=== PATIENT | male | born 1965 | race Caucasian/White ===

== ENCOUNTER 2016-11-29 11:54 | Emergency (ER) | payer OTHER ==
--- NOTE | ~2016-11-29 | CR98 ---
[facility] A Service of [facility] & [facility] RADIOLOGY TEXT RESULTS PATIENT: SHERINE CONTRERAS LOCATION: [facility] : 61 UNIT #: [id number] AGE: [address]: Leonard Dumont MD SEX: M ORDER DR: [id number] [facility] [address] [place], [place] [address] [id number] E MR#: [id number] Acc #: [id number] NAME: SHERINE CONTRERAS : 1965 SEX: M STUDY DATE/TIME: 11/29/2016 13:32 UNIT: [facility] ROOM: STUDY DESCRIPTION: CR Eye FB Shane Attending Physician: Leonard Dumont M.D. Ordering Physician: Brayden Vazquez D.O. Primary Care Physician: No Primary Care Physician MEDICAL IMAGING REPORT This report is preliminary unless electronic signature is present EXAM Plain film, orbital series, 11/29/2016. HISTORY Clinical concern for retained opaque foreign body. Former worker with metal. MRI planned for later today. Clearance for MRI. FINDINGS 3 views of the orbits performed. No comparisons. No retained opaque foreign body identified in the field of view. Dental hardware artifact present. The patient has mild degenerative change in the visualized cervical spine. IMPRESSION No retained opaque foreign body identified in the field of view. Dictated by... Bebeto Dye M.D. THIS IS AN ELECTRONICALLY VERIFIED REPORT Bebeto Dye M.D. at 11/29/2016 4:57 PM Dilip TD: 11/29/2016 16:37 JOB #: [id number] MEDICAL IMAGING REPORT COPY
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
[2016-11-29 14:03] LABS: BLOOD UREA NITROGEN 12 mg/dL (9-23); BUN/CREATININE RATIO 17.14; CALCIUM SERUM 9.3 mg/dL (8.4-10.2); CARBON DIOXIDE 27 mmol/L (22-31); CHLORIDE 104 mmol/L (100-111); CREATININE SERUM 0.7 mg/dL (0.6-1.4); GLOM FILT RATE Estimated ABOVE60 mL/min (>60); GLUCOSE FASTING 75 mg/dL (70-110); POTASSIUM 4.1 mmol/L (3.5-5.1); SODIUM 142 mmol/L (135-145)
== END 2016-11-29 19:15 | disposition home or self-care (01) ==
LOC: CED 11:54
PROVIDERS: Emergency Medicine
DX: S13.9XXA Sprain of joints and ligaments of unspecified parts of neck, initial encounter (principal); I72.9 Aneurysm of unspecified site; I10 Essential (primary) hypertension; E78.5 Hyperlipidemia, unspecified; F17.210 Nicotine dependence, cigarettes, uncomplicated; V43.52XA Car driver injured in collision with other type car in traffic accident, initial encounter
CPT/HCPCS: 70030; 70450; 70544; 70553; 72125; 80048; 99284; A9577

== ENCOUNTER 2016-12-13 09:39 | Emergency (ER) | payer OTHER ==
[2016-12-13 09:36] LABS: INFLUENZA A POS (NEG); INFLUENZA B NEG (NEG)
[2016-12-13 09:49] LABS: URINE SOURCE CLEAN CATCH
[2016-12-13 09:57] LABS: URINE APPEARANCE CLEAR; URINE BILIRUBIN NEG (NEG); URINE BLOOD NEG (NEG); URINE COLOR DK YELLOW; URINE GLUCOSE NEG (NEG); URINE KETONE TRACE (NEG); URINE LEUKOCYTE ESTERASE TRACE (NEG); URINE NITRATE NEG (NEG); URINE PH 5.5 (5-8); URINE PROTEIN TRACE (NEG); URINE SPECIFIC GRAVITY 1.026 (1.003-1.035)
[2016-12-13 10:01] LABS: URINE BACTERIA AUWI NEG (NEGATIVE); URINE SQUAMOUS EPITHELIAL CELL NONE SEEN /[HPF]; UWBCS1 AUWI 0-2 (0-5)
[2016-12-13 10:03] LABS: CULTURE INDICATED? NO
== END 2016-12-13 10:35 | disposition home or self-care (01) ==
LOC: CED 09:39
PROVIDERS: Nurse Practitioner
DX: J10.1 Influenza due to other identified influenza virus with other respiratory manifestations (principal); S39.012A Strain of muscle, fascia and tendon of lower back, initial encounter; I10 Essential (primary) hypertension; X58.XXXA Exposure to other specified factors, initial encounter
CPT/HCPCS: 81003; 87651; 87804; 99283